=== PATIENT | female | born 1960 | race Two or more races ===

== ENCOUNTER 2017-05-08 17:50 | Emergency (ER) | payer BC, OTHER ==
[~2017-05-08] VITALS: Ht 154.9 cm; Wt 72.6 kg
[~2017-05-08 17:50] MED LIST: GABA-497 PO; Insulin Detemir SC; LEVO-28 PO; LEVO150T10 PO; LISI-646 PO; OMEP20CA74 PO; [UNRECOGNIZED DRUG - CODE]
[2017-05-08] MEDS ORDERED: DEXTROSE 50% SYRINGE 50 ML IV ONE (18:20)
[2017-05-08] MEDS ORDERED: DEXTROSE (50%) 50ML SYRG IV ONE (18:30)
[2017-05-08 21:18] VITALS: BP 145/80
[2017-05-08 21:28] LABS: Basophils # (auto) 0 uL; Basophils % (auto) 0.3 % (0.0-2.0); CONDITION Y; Eosinophils # (auto) 0 uL; Eosinophils % (auto) 0.6 % (0.0-7.0); Hemoglobin 12.4 g/dL (12.2-16.2); Lymphocytes # (auto) 1.4 uL; Lymphocytes % (auto) 18.8 % (10.0-50.0); Mean Corpuscular Hemoglobin 31.5 pg (28.0-32.0); Mean Corpuscular Hgb Conc. 33.4 g/dL (32.0-36.0); Mean Corpuscular Volume 94.5 fL (80.0-100.0); Mean Platelet Volume 7.9 fL (7.4-10.4); Monocytes # (auto) 0.2 uL; Monocytes % (auto) 2.7 % (0.0-12.0); Neutrophils # (auto) 5.8 uL; Neutrophils % (auto) 77.6 % (37.0-80.0); Platelet Count (auto) 291 10^3/uL (140-450); Red Cell Distribution Width 13.7 % (11.6-16.0); White Blood Cell 7.4 10^3/uL (4.4-10.8)
[2017-05-08 21:59] LABS: Albumin 3.4 g/dL (3.4-5.0); BUN/Creatinine Ratio 29.4; Bilirubin, Total 0.3 mg/dL (0.2-1.0); Calcium 8.9 mg/dL (8.5-10.1); Potassium 4.4 mmol/L (3.5-5.1); Total Protein 7.4 g/dL (6.4-8.2)
== END 2017-05-08 23:56 | disposition home or self-care (01) ==
LOC: EDBD 17:50 → ER 17:58 → UNDOADMIN 17:59 → TELE 17:59 → ER 23:56
DX: E11.649 Type 2 diabetes mellitus with hypoglycemia without coma (principal); R41.82 Altered mental status, unspecified; E07.9 Disorder of thyroid, unspecified; Z79.4 Long term (current) use of insulin; Z79.899 Other long term (current) drug therapy; Z88.1 Allergy status to other antibiotic agents; Z91.012 Allergy to eggs
CPT/HCPCS: 36415; 80053; 82962; 85025; 96374; 99284; J7042